=== PATIENT | female | born 1970 | race Caucasian/White ===

== ENCOUNTER → 2016-08-03 | Outpatient (CLI) | payer OTHER ==
[2016-08-03 18:02] LABS: ANION GAP 8 MEQ/L (8-16); BLOOD UREA NITROGEN 9 MG/DL (7-18); CARBON DIOXIDE LEVEL 28 MEQ/L (21-32); CHLORIDE LEVEL 107 MEQ/L (98-107); CREATININE FOR GFR 0.94 MG/DL (0.55-1.02); GLOMERULAR FILTRATION RATE > 60.0 (>58); GLUCOSE, FASTING 103 MG/DL (70-105); POTASSIUM SERUM 4.3 MEQ/L (3.5-5.1); SODIUM LEVEL 143 MEQ/L (136-145)
== END ==
LOC: M WUC 14:22
PROVIDERS: ATTEND Family Medicine
DX: Z79.1 Long term (current) use of non-steroidal anti-inflammatories (NSAID) (principal)

== ENCOUNTER → 2016-12-22 | Outpatient (REF) | payer OTHER | LOC: M SFHCWAGY 10:07 | PROVIDERS: ATTEND Nurse Practitioner Women's Health | DX: Z12.4 Encounter for screening for malignant neoplasm of cervix (principal) ==

== ENCOUNTER → 2016-12-22 | Outpatient (CLI) | payer OTHER ==
--- NOTE | 2016-12-22 10:48 | REPMRS ---
Patient History The patient states she had a clinical breast exam in 12/2016. Patient had first child at age 38. Family history of breast cancer in maternal grandmother under age 50. Taking hormonal contraceptives for 7 months. Digital Woman Screen Mammo: December 22, 2016 - Exam #: [id number] Bilateral CC and MLO view(s) were taken. Technologist: Benita Andres, Technologist Prior study comparison: December 21, 2015, digital woman screen mammo performed at [facility]. December 18, 2014, digital woman screen mammo performed at [facility]. FINDINGS: The breast tissue is extremely dense which could obscure a lesion on mammography. There is no evidence of cancer on this mammogram. Given the dense breast parenchyma and family history, MRI of the breasts should be considered for further evaluation. No significant changes when compared with prior studies. ASSESSMENT: BI-RADS/ACR category 2 mammogram. Benign finding(s). Recommendation Routine screening mammogram of both breasts in 1 year (for women over age 40). This mammogram was interpreted with the aid of an FDA-approved computer-aided dectection system. Electronically Signed By: Willard Donald MD 12/22/16 [id number]
== END ==
LOC: M WHC 09:33
PROVIDERS: ATTEND Nurse Practitioner Women's Health
DX: Z12.31 Encounter for screening mammogram for malignant neoplasm of breast (principal); Z92.0 Personal history of contraception; Z80.3 Family history of malignant neoplasm of breast

== ENCOUNTER → 2017-12-25 | Outpatient (CLI) | payer OTHER | LOC: M WHC 10:12 | DX: Z12.31 Encounter for screening mammogram for malignant neoplasm of breast (principal); Z80.3 Family history of malignant neoplasm of breast | CPT/HCPCS: 77067 ==

== ENCOUNTER → 2018-12-26 | Outpatient (CLI) | payer OTHER ==
--- NOTE | 2018-12-26 13:34 | REP ---
BILATERAL SCREENING DIGITAL MAMMOGRAM WITH 3D TOMOSYNTHESIS: There are no palpable abnormalities or other breast complaints. The the patient states she had a clinical breast examination December 29, 2018. The the patient states she performs self-breast examinations four times a year. The Tyrer-Cuzick Score is: 20.5% . Comparison is 11/01/2013. The breasts are extremely dense, which lowers the sensitivity of mammography. There is no dominant mass, micro calcific cluster or architectural distortion that would indicate malignancy. There are no additional findings on 3D tomosynthesiss. There is no change from the prior study. Impression: BIRADS/ACR category 1 mammogram. Negative. Recommendation: Routine annual screening mammography. Because of the increased breast density, annual adjunctive breast MRI in addition to screening mammography is recommended. Additionally, for women with a Tyrer-Cuzick score greater than 20 , adjunctive annual breast MRI in addition to screening mammography is recommended. This mammogram was interpreted with the aid of a FDA approved computer-aided detection system. A. Negative mammogram reports should not delay biopsy if a dominant or clinically suspicious mass is present. B. Not all breast cancers are identified by mammography or tomosynthesis. C. Adenosis and dense breasts may obscure an underlying neoplasm. Patient letter M1 dense breasts. Electronically Signed by Willard Torres MD 12/26/2018 01:26 P
== END ==
LOC: M WHC 10:10
PROVIDERS: ATTEND Nurse Practitioner Women's Health
DX: Z12.31 Encounter for screening mammogram for malignant neoplasm of breast (principal); Z80.3 Family history of malignant neoplasm of breast

== ENCOUNTER → 2019-03-20 | Outpatient (CLI) | payer OTHER ==
--- NOTE | 2019-03-20 18:28 | REP ---
BILATERAL KNEES, AP UPRIGHT: AP view is performed of both knees in the upright position. No fracture or dislocation is seen. There is slight symmetrical medial joint space narrowing bilaterally. IMPRESSION: Minor medial joint space narrowing symmetrically bilaterally. Electronically Signed by Willard Donald MD 03/20/2019 06:49 P
--- NOTE | 2019-03-20 18:30 | REP ---
LEFT KNEE, FIVE VIEWS: Five views of the left knee performed. No fracture or dislocation is seen. No intrinsic osseous pathology is seen. There is slight medial joint space narrowing. There is minor patellofemoral compartment narrowing. No joint effusion is seen. IMPRESSION: Minor arthritic changes as above. Electronically Signed by Willard Donald MD 03/20/2019 06:48 P
== END ==
LOC: M WUC 17:59
PROVIDERS: ATTEND Family Medicine
DX: M25.569 Pain in unspecified knee (principal)

== ENCOUNTER → 2019-03-21 | Outpatient (CLI) | payer OTHER ==
[2019-03-21 09:41] LABS: BLOOD UREA NITROGEN 10 MG/DL (7-18); GLUCOSE, FASTING 87 MG/DL (70-100)
[2019-03-21 09:42] LABS: ALBUMIN 4.1 GM/DL (3.2-5.2); ALT/SGPT 24 U/L (12-78); BILIRUBIN,TOTAL 0.6 MG/DL (0.2-1.0); CALCIUM LEVEL 9.1 MG/DL (8.5-10.1); CARBON DIOXIDE LEVEL 29 MEQ/L (21-32); CHLORIDE LEVEL 106 MEQ/L (98-107); CHOLESTEROL LEVEL 159 MG/DL (<200); CHOLESTEROL RISK RATIO 2.409 (<5); CREATININE FOR GFR 0.94 MG/DL (0.55-1.30); GLOMERULAR FILTRATION RATE > 60.0 (>58); HDL CHOLESTEROL 66 MG/DL (>40); LDL CHOLESTEROL 78 MG/DL (<100); NON-HDL-C 93 MG/DL; POTASSIUM SERUM 4.2 MEQ/L (3.5-5.1); SODIUM LEVEL 141 MEQ/L (136-145); TRIGLYCERIDES LEVEL 73 MG/DL (<150)
== END ==
LOC: M WUC 08:28
PROVIDERS: ATTEND Family Medicine
DX: Z13.1 Encounter for screening for diabetes mellitus (principal); Z13.220 Encounter for screening for lipoid disorders

== ENCOUNTER → 2019-06-25 | Outpatient (REF) | payer OTHER | LOC: M SFHCPLAZ 18:50 | PROVIDERS: ATTEND Nurse Practitioner Family | DX: R19.7 Diarrhea, unspecified (principal) ==

== ENCOUNTER → 2019-06-25 | Outpatient (CLI) | payer OTHER ==
[2019-06-25 19:54] LABS: BASO % 0.5 % (0.0-1.0); EOS # 0.2 10^3/uL (0.0-0.5); EOS % 2.6 % (0.0-3.0); HEMATOCRIT 43.8 % (36.0-47.0); HEMOGLOBIN 14.4 g/dl (12.0-15.5); LYMPH # 1.9 10^3/uL (1.5-5.0); LYMPH % 32.6 % (24.0-44.0); MEAN CORPUSCULAR HEMOGLOBIN 31.4 pg (27.0-33.0); MEAN CORPUSCULAR HGB CONC 32.9 g/dl (32.0-36.5); MEAN CORPUSCULAR VOLUME 95.6 fl (80.0-96.0); MONO # 0.5 10^3/uL (0.0-0.8); MONO % 8.2 % (0.0-5.0); NEUTROPHILS # 3.2 10^3/uL (1.5-8.5); NEUTROPHILS % 55.8 % (36.0-66.0); PLATELET COUNT, AUTOMATED 361 10^3/uL (150-450); RED BLOOD COUNT 4.58 10^6/uL (4.00-5.40); WHITE BLOOD COUNT 5.8 10^3/uL (4.0-10.0)
[2019-06-25 20:20] LABS: ALBUMIN 4.2 GM/DL (3.2-5.2); ALT/SGPT 103 U/L (12-78); BILIRUBIN,TOTAL 0.3 MG/DL (0.2-1.0); BLOOD UREA NITROGEN 6 MG/DL (7-18); CALCIUM LEVEL 9.2 MG/DL (8.5-10.1); CARBON DIOXIDE LEVEL 27 MEQ/L (21-32); CHLORIDE LEVEL 107 MEQ/L (98-107); CREATININE FOR GFR 0.92 MG/DL (0.55-1.30); GLOMERULAR FILTRATION RATE > 60.0 (>58); GLUCOSE, FASTING 84 MG/DL (70-100); POTASSIUM SERUM 3.9 MEQ/L (3.5-5.1); SODIUM LEVEL 140 MEQ/L (136-145); TOTAL PROTEIN 7.5 GM/DL (6.4-8.2)
--- NOTE | 2019-06-26 03:15 | REPPI ---
Clinical: Abdominal pain and bloating. Technique: Supine and upright views of the abdomen and pelvis. Findings: Bowel gas pattern is nonspecific. Levoconvex scoliosis through the lumbar spine noted. IUD in satisfactory position. Scattered punctate calcifications in the upper abdomen are nonspecific and may be within the enteric system. However, renal and pancreatic calcifications cannot be excluded. Evidence of prior cholecystectomy. Impression: Bowel gas pattern is nonspecific. Findings as above. Electronically Signed by Chuckie Flanagan MD 06/26/2019 03:06 A
== END ==
LOC: M PLAIMG 15:31
PROVIDERS: ATTEND Nurse Practitioner Family
DX: R19.7 Diarrhea, unspecified (principal); R14.0 Abdominal distension (gaseous)

== ENCOUNTER → 2019-07-25 | Outpatient (CLI) | payer OTHER ==
[~2019-07-25] MED LIST: PROHANCE 279.3MG/ML 15ML VIAL (A9576) As Ordered ONE
--- NOTE | 2019-07-25 15:16 | REP ---
BILATERAL BREAST MRI STUDY WITHOUT AND WITH IV GADOLINIUM: HISTORY: High risk breast cancer screening. Positive family history breast carcinoma. Comparison mammography December 26, 2018. TECHNIQUE: Three Melina MRI imaging was performed with a dedicated breast coil. Axial, coronal, and sagittal T1 and T2-weighted scans were obtained with and without fat saturation in the usual fashion. The study includes dynamically acquired post gadolinium enhanced imaging subtraction imaging. Maximal intensity projection and multiplanar re-formation imaging is included as well. The study was interpreted with the aid of Pocket GemsD, an FDA approved computer-aided detection (CAD) software program, on a dedicated breast MRI work station. The gadolinium enhancement dose is 14 mL of intravenous ProHance. FINDINGS: There is a marked pattern of fibroglandular tissue bilaterally corresponding with the dense breast tissue pattern mammographically. There is a moderate pattern of diffuse background parenchymal enhancement. There is no evidence of axillary adenopathy or significant breast cystic change. High-resolution pre- and postcontrast images show no suspicious morphologic abnormality in either breast. Dynamically acquired sequential post contrast images show no suspicious area of enhancement and/or washout in either breast to suggest malignancy. Subtraction images show no additional abnormality. IMPRESSION: BIRADS category 1 negative bilateral breast MRI study. Repeat breast MRI scanning recommended 1 year. Electronically Signed by Victoriano Samano MD 07/25/2019 05:15 P
== END ==
LOC: M RAD 12:45
PROVIDERS: ATTEND Nurse Practitioner Women's Health
DX: Z80.3 Family history of malignant neoplasm of breast (principal); Z91.89 Other specified personal risk factors, not elsewhere classified
CPT/HCPCS: A9576; C8908

== ENCOUNTER → 2019-12-30 | Outpatient (CLI) | payer OTHER ==
--- NOTE | 2019-12-30 12:23 | REPMRS ---
Patient History The patient states she had a clinical breast exam in December 2019. Family history of breast cancer at age 40 in maternal grandmother. Taking hormonal contraceptives for 4 years. Digital Woman Screen Mammo: December 30, 2019 - Exam #: [id number] Bilateral CC and MLO view(s) were taken. Technologist: Berna Amaya, Technologist Prior study comparison: December 26, 2018, bilateral digital woman screen mammo performed at [facility]. December 25, 2017, bilateral digital woman screen mammo performed at [facility]. December 22, 2016, digital woman screen mammo performed at [facility]. FINDINGS: The breast tissue is heterogeneously dense. This may lower the sensitivity of mammography. The Volpara volumetric breast density category is: C. There is a moderate amount of heterogeneously dense fibroglandular tissue which is fairly symmetric. There is no interval development of dominant mass, architectural distortion, or grouped microcalcification typical of malignancy. There has been no change in the appearance of the mammogram from the prior studies. 3-D tomosynthesis shows no additional findings. Assessment: BI-RADS/ACR category 1 mammogram. Negative Mammogram. Recommendation Breast MRI of both breasts in 6 months. Routine screening mammogram of both breasts in 1 year (for women over age 40). This patient's Lifetime Breast Cancer RIsk is estimated at 20.2 %. Annual screening Breast MRI scanniing is recommended for patient's whose lifetime risk assessment is over 20%. This mammogram was interpreted with the aid of an FDA-approved computer-aided dectection system. Electronically Signed By: Venkat Samano MD 12/30/19 [id number]
== END ==
LOC: M WHC 10:16
PROVIDERS: ATTEND Nurse Practitioner Women's Health
DX: Z12.31 Encounter for screening mammogram for malignant neoplasm of breast (principal); Z12.4 Encounter for screening for malignant neoplasm of cervix; Z79.3 Long term (current) use of hormonal contraceptives
CPT/HCPCS: 77063; 77067; 87624; G0123

== ENCOUNTER → 2020-03-17 | Outpatient (REF) | payer OTHER ==
[2020-03-17 16:28] LABS: ALBUMIN 4.1 GM/DL (3.2-5.2); ALT/SGPT 30 U/L (12-78); BILIRUBIN,TOTAL 0.4 MG/DL (0.2-1.0); BLOOD UREA NITROGEN 11 MG/DL (7-18); CALCIUM LEVEL 9.4 MG/DL (8.5-10.1); CARBON DIOXIDE LEVEL 27 MEQ/L (21-32); CHLORIDE LEVEL 107 MEQ/L (98-107); CREATININE FOR GFR 0.81 MG/DL (0.55-1.30); GLOMERULAR FILTRATION RATE > 60.0 (>58); GLUCOSE, FASTING 102 MG/DL (70-100); POTASSIUM SERUM 4.2 MEQ/L (3.5-5.1); SODIUM LEVEL 139 MEQ/L (136-145); TOTAL PROTEIN 7.5 GM/DL (6.4-8.2)
== END ==
LOC: M SFHCPLAZ 13:33
PROVIDERS: ATTEND Family Medicine
DX: R79.89 Other specified abnormal findings of blood chemistry (principal)

== ENCOUNTER → 2020-06-17 | Outpatient (CLI) | payer OTHER | LOC: M LABSMTC 12:39 | PROVIDERS: ATTEND Family Medicine | DX: Z20.822 Contact with and (suspected) exposure to COVID-19 (principal) ==

== ENCOUNTER → 2020-08-03 | Outpatient (CLI) | payer OTHER ==
[~2020-08-03] MED LIST changes: -PROHANCE 279.3MG/ML 15ML VIAL (A9576) As Ordered ONE; +PROHANCE 279.3MG/ML 15ML VIAL As Ordered ONE
--- NOTE | 2020-08-03 16:47 | REP ---
INDICATION: DENSE BREAST TISSUE ON MAMMO. Positive family history breast carcinoma. [facility] breast cancer lifetime risk assessment 20.2%. COMPARISON: Comparison bilateral breast MRI study is from July 25, 2019. Comparison mammography December 30, 2019. TECHNIQUE: Three Melina MRI imaging was performed with a dedicated breast coil. Axial, coronal, and sagittal T1 and T2 weighted scans were obtained with and without fat saturation in the usual fashion. The study includes dynamically acquired post gadolinium-enhanced imaging with image subtraction. Maximum intensity projection and multi planar reformation imaging is included as well. This study is interpreted with the aid of appMobiD, an FDA approved computer aided detection (CAD) software program, on a dedicated breast MRI workstation. The gadolinium enhancement dose is 15 mL of intravenous ProHance. FINDINGS: There is a marked amount of fibroglandular tissue bilaterally corresponding with the mammographic pattern. There is [id number] background parenchymal enhancement. There is no evidence of axillary lymphadenopathy or significant breast cystic change. On postcontrast images in the upper outer quadrant of the left breast posterior 3rd, there is a somewhat spiculated area of contrast enhancement visible on today's study. Most of the enhancement is sub threshold but there are a few areas of enhancement and washout within this region. This measures 2.1 cm anteroposterior by 1.0 cm craniocaudal by 0.8 cm medial to lateral. This is felt to represent a change from the prior study. Otherwise, breast parenchymal texture and enhancement pattern is felt to be unchanged. IMPRESSION: BI-RADS category 0 incomplete imaging. New spiculated area of contrast enhancement approximately 2 cm in greatest diameter in the upper outer quadrant of the left breast posterior 3rd. Recommend diagnostic left breast mammography with laterally rotated CC views, and targeted left breast sonography be obtained. Biopsy may be warranted.. <Electronically signed by Venkat Samano > 08/03/20 [id number]
== END ==
LOC: M RAD 10:52
PROVIDERS: ATTEND Nurse Practitioner Women's Health
DX: R92.2 Inconclusive mammogram (principal); Z80.3 Family history of malignant neoplasm of breast; Z91.89 Other specified personal risk factors, not elsewhere classified
CPT/HCPCS: A9576; C8908

== ENCOUNTER → 2020-08-13 | Outpatient (CLI) | payer OTHER ==
--- NOTE | 2020-08-13 15:48 | REP ---
INDICATION: INCOMPLETE LT BREAST MRI,NEEDS U/S. COMPARISON: MRI breasts 08/03/2020. TECHNIQUE: Real-time sonographic evaluation of left breast performed. FINDINGS: Ultrasound was performed between 12 and 5 o'clock left breast. The prior MRI showed spiculated enhancement in the region of the upper-outer quadrant of the left breast. Dense fibroglandular tissue is present. No cystic or solid mass is visualized. IMPRESSION: BIRADS/ACR category 0, incomplete. Ultrasound performed today without radiologist present did not show evidence of a mass in the upper-outer quadrant of the left breast. Recommend the patient return for diagnostic mammogram left breast as described in the MRI report. Repeat ultrasound should also be performed at that time, with the radiologist present for the ultrasound scan. RECOMMENDATION: See impression. <Electronically signed by Willard Donald > 08/13/20 1547
== END ==
LOC: M WHC 11:36
PROVIDERS: ATTEND Nurse Practitioner Women's Health
DX: R92.2 Inconclusive mammogram (principal); Z80.3 Family history of malignant neoplasm of breast; Z91.89 Other specified personal risk factors, not elsewhere classified

== ENCOUNTER → 2020-08-25 | Outpatient (CLI) | payer OTHER ==
--- NOTE | 2020-08-25 18:04 | REP ---
INDICATION: R92.2 DENSE BREAST/Z80L3 FAM HX BR CA/Z91.89. Second-look targeted left breast sonography. Abnormality noted upper outer quadrant left breast on MRI study. COMPARISON: Recent MRI exam August 03, 2020. Breast sonography August 13, 2020. Comparison mammography December 30, 2019.. TECHNIQUE: Targeted left breast sonography. Scanning is performed in my presence. FINDINGS: Heterogeneous fibroglandular background echotexture is observed consistent with fibrocystic change. No sonographically suspicious or conspicuous target area is seen on second-look ultrasound to correlate with the MR findings. IMPRESSION: Second-look sonography does not identify a sonographically accessible target to correlate with the MR findings. Diagnostic left breast mammography is scheduled. MR guided needle biopsy may be warranted. BI-RADS category 0 incomplete diagnostic left mammography scheduled in 1 week.. <Electronically signed by Venkat Samano > 08/25/20 [id number]
== END ==
LOC: M RAD 16:01
PROVIDERS: ATTEND Nurse Practitioner Women's Health
DX: R92.2 Inconclusive mammogram (principal); Z91.89 Other specified personal risk factors, not elsewhere classified; Z80.3 Family history of malignant neoplasm of breast

== ENCOUNTER → 2020-08-31 | Outpatient (CLI) | payer OTHER ==
--- NOTE | 2020-08-31 13:29 | REP ---
INDICATION: R92.8 ABN MRI LT BREAST. New area of contrast enhancement 2 cm in greatest diameter in the posterior aspect upper outer quadrant left breast on recent MRI study. Second-look ultrasound was accomplished on August 25 without identifying an ultrasound correlate. Diagnostic mammography for further evaluation. COMPARISON: Comparison mammography is reviewed the most recent which is from December 30, 2019. TECHNIQUE: Routine views of the left breast a augmented by laterally exaggerated, and magnified focal spot-compression images. True mL images are obtained. 3D tomography is performed. This mammogram was interpreted with the aid of an FDA-approved computer-aided detection system. FINDINGS: Heterogeneously dense breast parenchyma is again noted in a pattern which appears mammographically unchanged from the December 30, 2019 study and the December 26, 2018 study. No area of architectural distortion or spiculation has developed in the upper outer quadrant posterior aspect. No mammographically suspicious finding. The Volpara volumetric breast density pattern is C. : IMPRESSION: BIRADS/ACR category 4 suspicious MRI findings. No mammographic correlate. This patient's Tyrer-Cuzick lifetime breast cancer risk assessment score is 20.2%. RECOMMENDATION: MRI guided needle biopsy of a suspicious area identified on MRI scanning upper-outer quadrant left breast.. The patient letter being requested is M4 dense. <Electronically signed by Venkat Samano > 08/31/20 [id number]
== END ==
LOC: M WHC 12:07
PROVIDERS: ATTEND Nurse Practitioner Women's Health
DX: R92.8 Other abnormal and inconclusive findings on diagnostic imaging of breast (principal); N63.21 Unspecified lump in the left breast, upper outer quadrant
CPT/HCPCS: 77065; G0279

== ENCOUNTER → 2020-09-25 | Outpatient (CLI) | payer OTHER ==
[~2020-09-25] MED LIST changes: +LIDOCAINE 1% MDV 20ML VIAL As Ordered ONE; +SODIUM BICARBONATE 8.4% INJ 50MEQ 50 ML VIAL As Ordered ONE
[2020-09-25 11:40] VITALS: BP 150/88
--- NOTE | 2020-09-25 13:58 | REP ---
INDICATION: R92.8 ABN MRI LT BREAST, POST MRI BIOPSY. Marker clip placement mammography. COMPARISON: Comparison is made with images from today's MR guided needle biopsy procedure of the left breast. Comparison mammography August 31, 2020. Comparison breast MRI study August 03, 2020. TECHNIQUE: Craniocaudal, laterally exaggerated craniocaudal, true mL, and MLO views are obtained. This mammogram was interpreted with the aid of an FDA-approved computer-aided detection system. FINDINGS: Heterogeneously dense breast parenchyma is again seen in a pattern which may inhibit the sensitivity mammography as before. There is some mild post biopsy edema and skin thickening in the upper-outer quadrant of the left breast. No hematoma is appreciated. The needle biopsy marker clip deployed at the time of the MR guided breast biopsy is not seen mammographically. Apparently, there was some bleeding just after needle removal. The marker clip may have dislodged from the breast in this process. In any event, it is not visualized. No mammographically suspicious finding. The Volpara volumetric breast density pattern is C. IMPRESSION: Marker clip not visualized at the biopsy site in the upper-outer quadrant of the left breast. I discussed this with the patient at the time of the mammography. RECOMMENDATION: Recommendation pending biopsy results.. <Electronically signed by Venkat Samano > 09/25/20 [id number]
--- NOTE | 2020-09-25 14:21 | REP ---
INDICATION: ABNORMAL IMAGING LT BREAST. COMPARISON: None. TECHNIQUE: The procedure was performed by Evelia Velasquez [facility], under the direct supervision of Dr. Donald. The risks and benefits of the procedure were explained to the patient and an informed consent was obtained both verbally and written. Directly prior to the start of the procedure a formal time-out was completed in the procedure room. The patient was placed prone on the MRI imaging table in the breast imaging coil and the left breast was compressed mildly. Fifteen mL of intravenous gadolinium was administered. Fiducial marker localization, pre and two dynamic postcontrast T1 weighted fat saturation sequences of the left breast were acquired. The [employer] Mobile system was then deployed. The lesion was targeted on initial images, and the lateral aspect of the skin was marked at the identified triangulated skin entry site. The lateral skin at the entry site was prepped aseptically. Six ML of buffered lidocaine was administered into the skin and the breast parenchyma along the anticipated needle path. A skin jameel was then made and in 8 gauge mammotome suction assisted needle biopsy device was passed into the left breast tissue with significant technical difficulty due to the density of the breast tissue. Six core breast biopsies were retrieved and were submitted in formalin to pathology. A marker clip was deployed. FINDINGS: The patient tolerated the procedure well, directly after the procedure a large clot came out of the incision site. No hematoma was appreciated, pressure was held for several minutes, and no hematoma formation was felt within the breast parenchyma.. The patient was then discharged to go and get their postprocedural two view mammography for marker clip placement. IMPRESSION: MRI guided left breast biopsy. <Electronically signed by Evelia Velasquez > 09/25/20 1327 <Electronically signed by Willard Donald > 09/25/20 1512
== END ==
LOC: M WHC 08:50 → M IRPRO 08:50
PROVIDERS: ATTEND Nurse Practitioner Women's Health
DX: R92.8 Other abnormal and inconclusive findings on diagnostic imaging of breast (principal)

== ENCOUNTER → 2020-12-30 | Outpatient (CLI) | payer OTHER ==
--- NOTE | 2020-12-30 12:18 | REPMRS ---
Patient History The patient states she had a clinical breast exam in December 2020. Patient had first child at age 38. Family history of breast cancer at age 40 in maternal grandmother. Benign MRI guided breast biopsy of the left breast, September 25, 2020. Taking hormonal contraceptives for 5 years. Pfizer vaccine 08/12/20 left arm. 09/02/20 left arm. Patient states no breast complaints today. Patient has signed MRS History Sheet. Digital Woman Screen Mammo: December 30, 2020 - Exam #: [id number] Bilateral CC and MLO view(s) were taken. Technologist: RT Obi Prior study comparison: September 25, 2020, left breast diagnostic unilateral mammo performed at [facility]. August 31, 2020, left breast diagnostic unilateral mammo performed at [facility]. December 30, 2019, bilateral digital woman screen mammo performed at [facility]. December 26, 2018, bilateral digital woman screen mammo performed at [facility]. FINDINGS: The breast tissue is heterogeneously dense. This may lower the sensitivity of mammography. The Volpara volumetric breast density category is: C. There is a moderate amount of heterogeneously dense fibroglandular tissue which is fairly symmetric. There is no interval development of dominant mass, architectural distortion, or grouped microcalcification typical of malignancy. There has been no change in the appearance of the mammogram from the prior studies. 3-D tomosynthesis shows no additional findings. Assessment: BI-RADS/ACR category 1 mammogram. Negative Mammogram. Recommendation Routine screening mammogram of both breasts in 1 year (for women over age 40). This patient's [facility] Lifetime Breast Cancer RIsk is estimated at 19.9 %. Patients whose estimated lifetime breast cancer risk assessment is greater than 20% merit annual screening breast MRI scanning in addition to annual mammography. This mammogram was interpreted with the aid of an FDA-approved computer-aided dectection system. Electronically Signed By: Venkat Samano MD 12/30/20 3993
== END ==
LOC: M WHC 10:28
PROVIDERS: ATTEND Nurse Practitioner Women's Health
DX: Z12.31 Encounter for screening mammogram for malignant neoplasm of breast (principal)

== ENCOUNTER → 2021-08-23 | Outpatient (CLI) | payer OTHER ==
[~2021-08-23] MED LIST changes: -LIDOCAINE 1% MDV 20ML VIAL As Ordered ONE; -PROHANCE 279.3MG/ML 15ML VIAL As Ordered ONE; +PROHANCE 279.3MG/ML 15ML VIAL ONE; -SODIUM BICARBONATE 8.4% INJ 50MEQ 50 ML VIAL As Ordered ONE
== END ==
LOC: M PLAIMG 12:56
PROVIDERS: ATTEND Nurse Practitioner Women's Health
DX: Z91.89 Other specified personal risk factors, not elsewhere classified (principal); Z80.3 Family history of malignant neoplasm of breast; R92.2 Inconclusive mammogram

== ENCOUNTER → 2021-09-30 | Outpatient (REF) | payer OTHER ==
[2021-09-30 22:33] LABS: INFLUENZA A AMPLIFICATION NEGATIVE (NEGATIVE); INFLUENZA B AMPLIFICATION NEGATIVE (NEGATIVE)
== END ==
LOC: M LAB REF 21:14
PROVIDERS: ATTEND Physician Assistant
DX: R50.9 Fever, unspecified (principal); R05.9 Cough, unspecified

== ENCOUNTER → 2021-10-06 | Outpatient (CLI) | payer OTHER | LOC: M LABSMTC 09:29 | PROVIDERS: ATTEND Pediatrics | DX: Z11.52 Encounter for screening for COVID-19 (principal) ==

== ENCOUNTER → 2021-12-01 | Outpatient (CLI) | payer OTHER ==
[2021-12-01 18:09] LABS: BASO % 0.5 % (0.0-1.0); EOS # 0.2 10^3/uL (0.0-0.5); EOS % 3.2 % (0.0-3.0); HEMATOCRIT 39.5 % (36.0-47.0); HEMOGLOBIN 13.1 g/dl (12.0-15.5); LYMPH # 2.2 10^3/uL (1.5-5.0); LYMPH % 33.5 % (24.0-44.0); MEAN CORPUSCULAR HEMOGLOBIN 31.8 pg (27.0-33.0); MEAN CORPUSCULAR HGB CONC 33.2 g/dl (32.0-36.5); MEAN CORPUSCULAR VOLUME 95.9 fl (80.0-96.0); MONO # 0.4 10^3/uL (0.0-0.8); MONO % 6.1 % (2.0-8.0); NEUTROPHILS # 3.7 10^3/uL (1.5-8.5); NEUTROPHILS % 56.2 % (36.0-66.0); PLATELET COUNT, AUTOMATED 303 10^3/uL (150-450); RED BLOOD COUNT 4.12 10^6/uL (4.00-5.40); WHITE BLOOD COUNT 6.5 10^3/uL (4.0-10.0)
[2021-12-01 18:31] LABS: ALT/SGPT 28 U/L (12-78); BILIRUBIN,TOTAL 0.4 MG/DL (0.2-1.0); BLOOD UREA NITROGEN 13 MG/DL (7-18); CALCIUM LEVEL 9.4 MG/DL (8.5-10.1); CARBON DIOXIDE LEVEL 29 MEQ/L (21-32); CHLORIDE LEVEL 101 MEQ/L (98-107); CHOLESTEROL LEVEL 174 MG/DL (<200); CHOLESTEROL RISK RATIO 2.597 (<5); CREATININE FOR GFR 0.82 MG/DL (0.55-1.30); GLOMERULAR FILTRATION RATE > 60.0 (>58); GLUCOSE, FASTING 83 MG/DL (70-100); HDL CHOLESTEROL 67 MG/DL (>40); LDL CHOLESTEROL 93 MG/DL (<100); NON-HDL-C 107 MG/DL; SODIUM LEVEL 138 MEQ/L (136-145); TOTAL PROTEIN 7.6 GM/DL (6.4-8.2); TRIGLYCERIDES LEVEL 70 MG/DL (<150)
[2021-12-01 18:49] LABS: TOTAL 25(OH) VITAMIN D 47.6 NG/ML (30.0-100.0)
== END ==
LOC: M PLALAB 15:50
PROVIDERS: ATTEND Physician Assistant
DX: E55.9 Vitamin D deficiency, unspecified (principal); E66.09 Other obesity due to excess calories

== ENCOUNTER → 2022-02-18 | Outpatient (CLI) | payer OTHER | LOC: M WHC 15:17 | PROVIDERS: ATTEND Nurse Practitioner Family | DX: Z12.31 Encounter for screening mammogram for malignant neoplasm of breast (principal); R92.8 Other abnormal and inconclusive findings on diagnostic imaging of breast; Z80.3 Family history of malignant neoplasm of breast ==

== ENCOUNTER → 2022-12-02 | Outpatient (CLI) | payer OTHER ==
[2022-12-02 13:32] LABS: BASO % 0.6 % (0.0-1.0); EOS # 0.3 10^3/uL (0.0-0.5); EOS % 5.1 % (0.0-3.0); HEMATOCRIT 40.2 % (36.0-47.0); HEMOGLOBIN 13.4 g/dl (12.0-15.5); LYMPH # 2.1 10^3/uL (1.5-5.0); LYMPH % 31.9 % (24.0-44.0); MEAN CORPUSCULAR HEMOGLOBIN 31.5 pg (27.0-33.0); MEAN CORPUSCULAR HGB CONC 33.3 g/dl (32.0-36.5); MEAN CORPUSCULAR VOLUME 94.6 fl (80.0-96.0); MONO # 0.5 10^3/uL (0.0-0.8); MONO % 7.9 % (2.0-8.0); NEUTROPHILS # 3.6 10^3/uL (1.5-8.5); NEUTROPHILS % 54.1 % (36.0-66.0); PLATELET COUNT, AUTOMATED 297 10^3/uL (150-450); RED BLOOD COUNT 4.25 10^6/uL (4.00-5.40); WHITE BLOOD COUNT 6.7 10^3/uL (4.0-10.0)
[2022-12-02 13:39] LABS: ALBUMIN 3.8 G/DL (3.2-5.2); ALKALINE PHOSPHATASE 77 U/L (46-116); ALT/SGPT 23 U/L (7.0-40); AST/SGOT < 8 U/L (<34); BILIRUBIN,TOTAL 0.3 MG/DL (0.3-1.2); BLOOD UREA NITROGEN 14 MG/DL (9-23); CALCIUM LEVEL 9.3 MG/DL (8.5-10.1); CARBON DIOXIDE LEVEL 31 MMOL/L (20-31); CHLORIDE LEVEL 104 MMOL/L (98-107); CHOLESTEROL LEVEL 160 MG/DL (<200); CHOLESTEROL RISK RATIO 2.73 (<5); CREATININE FOR GFR 0.86 MG/DL (0.55-1.30); GLOMERULAR FILTRATION RATE > 60.0 (>51); GLUCOSE, FASTING 76 MG/DL (60-100); HDL CHOLESTEROL 58.5 MG/DL (>40); LDL CHOLESTEROL 81.3 MG/DL (<100); NON-HDL-C 101.5 MG/DL; POTASSIUM SERUM 4.6 MMOL/L (3.5-5.1); SODIUM LEVEL 138 MMOL/L (136-145); TOTAL PROTEIN 6.8 G/DL (5.7-8.2); TRIGLYCERIDES LEVEL 101 MG/DL (<150)
[2022-12-02 13:43] LABS: THYROID STIMULATING HORMONE 1.261 uIU/ML (0.55-4.78)
[2022-12-02 13:45] LABS: FREE T4 1.16 NG/DL (0.89-1.76)
[2022-12-02 14:00] LABS: HEMOGLOBIN A1c 4.9 % (4.0-6.0)
== END ==
LOC: M PLALAB 11:01
PROVIDERS: ATTEND Physician Assistant
DX: R63.5 Abnormal weight gain (principal); E55.9 Vitamin D deficiency, unspecified; E66.09 Other obesity due to excess calories

== ENCOUNTER → 2022-12-21 | Outpatient (CLI) | payer OTHER | LOC: M RAD 09:47 | PROVIDERS: ATTEND Physician Assistant | DX: M79.662 Pain in left lower leg (principal); M79.89 Other specified soft tissue disorders ==

== ENCOUNTER → 2023-02-23 | Outpatient (CLI) | payer OTHER | LOC: M WHC 15:33 | PROVIDERS: ATTEND Nurse Practitioner Family | DX: Z12.31 Encounter for screening mammogram for malignant neoplasm of breast (principal) ==

== ENCOUNTER → 2023-07-07 | Outpatient (CLI) | payer OTHER | LOC: M WHC 08:06 | PROVIDERS: ATTEND Nurse Practitioner Family | DX: Z12.31 Encounter for screening mammogram for malignant neoplasm of breast (principal) ==

== ENCOUNTER → 2023-12-21 | Outpatient (CLI) | payer OTHER ==
[2023-12-21 14:46] LABS: BASO # 0.1 10^3/uL (0.0-0.2); BASO % 0.9 % (0.0-1.0); EOS # 0.3 10^3/uL (0.0-0.5); EOS % 4.8 % (0.0-3.0); HEMATOCRIT 39.8 % (36.0-47.0); HEMOGLOBIN 13.1 g/dl (12.0-15.5); LYMPH # 1.5 10^3/uL (1.5-5.0); LYMPH % 28.3 % (24.0-44.0); MEAN CORPUSCULAR HEMOGLOBIN 31.3 pg (27.0-33.0); MEAN CORPUSCULAR HGB CONC 32.9 g/dl (32.0-36.5); MONO # 0.4 10^3/uL (0.0-0.8); MONO % 6.8 % (2.0-8.0); NEUTROPHILS # 3.2 10^3/uL (1.5-8.5); NEUTROPHILS % 58.8 % (36.0-66.0); PLATELET COUNT, AUTOMATED 304 10^3/uL (150-450); RED BLOOD COUNT 4.19 10^6/uL (4.00-5.40); WHITE BLOOD COUNT 5.5 10^3/uL (4.0-10.0)
[2023-12-21 15:18] LABS: ALBUMIN 4.2 G/DL (3.2-5.2); ALKALINE PHOSPHATASE 90 U/L (46-116); ALT/SGPT 14 U/L (7.0-40); AST/SGOT 10 U/L (<34); BILIRUBIN,TOTAL 0.5 MG/DL (0.3-1.2); BLOOD UREA NITROGEN 11 MG/DL (9-23); CARBON DIOXIDE LEVEL 28 MMOL/L (20-31); CHLORIDE LEVEL 105 MMOL/L (98-107); CHOLESTEROL LEVEL 172 MG/DL (<200); CHOLESTEROL RISK RATIO 3.09 (<5); CREATININE FOR GFR 0.82 MG/DL (0.55-1.30); GLOMERULAR FILTRATION RATE > 60.0 (>51); GLUCOSE, FASTING 78 MG/DL (60-100); HDL CHOLESTEROL 55.5 MG/DL (>40); LDL CHOLESTEROL 100.9 MG/DL (<100); NON-HDL-C 116.5 MG/DL; POTASSIUM SERUM 4.2 MMOL/L (3.5-5.1); SODIUM LEVEL 138 MMOL/L (136-145); TOTAL PROTEIN 6.7 G/DL (5.7-8.2); TRIGLYCERIDES LEVEL 78 MG/DL (<150)
[2023-12-21 15:19] LABS: FOLLICLE STIMULATING HORMONE 60.6 mIU/ML; THYROID STIMULATING HORMONE 1.571 uIU/ML (0.55-4.78)
[2023-12-21 15:20] LABS: TOTAL 25(OH) VITAMIN D 51.2 NG/ML (20.0-100.0)
[2023-12-21 16:32] LABS: HEMOGLOBIN A1c 4.8 % (4.0-6.0)
== END ==
LOC: M PLALAB 10:10
PROVIDERS: ATTEND Physician Assistant
DX: Z00.00 Encounter for general adult medical examination without abnormal findings (principal)

== ENCOUNTER → 2024-01-04 | Outpatient (CLI) | payer OTHER ==
[~2024-01-04] MED LIST changes: +PROHANCE 279.3MG/ML 5ML VIAL ONE
== END ==
LOC: M PLAIMG 10:38
PROVIDERS: ATTEND Nurse Practitioner Family
DX: R92.2 Inconclusive mammogram (principal); Z91.89 Other specified personal risk factors, not elsewhere classified; Z80.3 Family history of malignant neoplasm of breast

== ENCOUNTER → 2024-07-09 | Outpatient (CLI) | payer OTHER | LOC: M WHC 13:23 | PROVIDERS: ATTEND Nurse Practitioner Family | DX: Z12.31 Encounter for screening mammogram for malignant neoplasm of breast (principal) ==

== ENCOUNTER → 2025-04-08 | Outpatient (REF) | payer OTHER ==
[2025-04-10 12:56] LABS: HPV APTIMA Not Detected (Not Detected)
== END ==
LOC: M PLALAB 15:49
PROVIDERS: ATTEND Physician Assistant
DX: Z12.4 Encounter for screening for malignant neoplasm of cervix (principal)
CPT/HCPCS: 87624; G0123

== ENCOUNTER → 2025-05-12 | Outpatient (CLI) | payer OTHER | LOC: M PLAIMG 08:55 | PROVIDERS: ATTEND Physician Assistant | DX: Z91.89 Other specified personal risk factors, not elsewhere classified (principal) ==

== ENCOUNTER → 2025-06-11 | Outpatient (CLI) | payer OTHER | LOC: M WHC 07:23 | PROVIDERS: ATTEND Physician Assistant | DX: R92.2 Inconclusive mammogram (principal) ==